=== PATIENT | female | born 1975 | race Caucasian/White ===

== ENCOUNTER → 2020-03-26 | Outpatient (CLI) | payer OTHER ==
[~2020-03-26] MED LIST: ALBU8.5H5 INH; IBUP-1222 PO; IBUP200T49 PO; LEVO50TA5 PO; LEVO75TA PO; ONDA4TAB13 SL; OXYC-302 PO
== END | disposition home or self-care (01) ==
LOC: CFH 12:22 → EDSTATUS 12:30
PROVIDERS: ATTEND Obstetrics & Gynecology
DX: Z12.31 Encounter for screening mammogram for malignant neoplasm of breast (principal)
CPT/HCPCS: 77063; 77067